=== PATIENT | male | born 1975 | race Caucasian/White ===

== ENCOUNTER 2024-09-03 21:45 | Emergency (ER) | payer OTHER ==
[~2024-09-03] VITALS: Ht 177.8 cm; Wt 80.9 kg
[2024-09-03 22:43] LABS: BASO % 0.3 % (0.0-1.0); EOS # 0.1 10^3/uL (0.0-0.5); EOS % 1.2 % (0.0-3.0); HEMOGLOBIN 10.3 g/dl (13.5-17.5); LYMPH # 0.8 10^3/uL (1.5-5.0); LYMPH % 11.7 % (24.0-44.0); MEAN CORPUSCULAR HEMOGLOBIN 32.9 pg (27.0-33.0); MEAN CORPUSCULAR HGB CONC 35.5 g/dl (32.0-36.5); MEAN CORPUSCULAR VOLUME 92.7 fl (80.0-96.0); MONO # 0.5 10^3/uL (0.0-0.8); MONO % 7.3 % (2.0-8.0); NEUTROPHILS # 5.2 10^3/uL (1.5-8.5); NEUTROPHILS % 79.3 % (36.0-66.0); PLATELET COUNT, AUTOMATED 187 10^3/uL (150-450); RED BLOOD COUNT 3.13 10^6/uL (4.30-6.10); WHITE BLOOD COUNT 6.6 10^3/uL (4.0-10.0)
[2024-09-03 23:05] LABS: LIPASE 84 U/L (12-53)
[2024-09-03 23:07] LABS: ALBUMIN 2.9 G/DL (3.2-5.2); ALKALINE PHOSPHATASE 121 U/L (40-129); ALT/SGPT 51 U/L (7.0-40); AST/SGOT 84 U/L (<34); BILIRUBIN,DIRECT 4.2 MG/DL (<0.4); BILIRUBIN,TOTAL 8.9 MG/DL (0.3-1.2); BLOOD UREA NITROGEN 12 MG/DL (9-23); CALCIUM LEVEL 8.8 MG/DL (8.5-10.1); CARBON DIOXIDE LEVEL 25 MMOL/L (20-31); CHLORIDE LEVEL 96 MMOL/L (98-107); CREATININE FOR GFR 0.83 MG/DL (0.70-1.30); GLOMERULAR FILTRATION RATE > 60.0 (>60); GLUCOSE, FASTING 114 MG/DL (60-100); POTASSIUM SERUM 4.8 MMOL/L (3.5-5.1); SODIUM LEVEL 128 MMOL/L (136-145); TOTAL PROTEIN 6.9 G/DL (5.7-8.2)
[2024-09-04] MEDS: NS (Normal Saline) 0.9% 1,000 ML IV ONE (00:55)
[2024-09-04] MEDS: METOCLOPRAMIDE INJ 10MG/2ML VIAL IV ONE (01:56)
[2024-09-04 02:22] LABS: INR 1.96; PARTIAL THROMBOPLASTIN TIME 37.6 SECONDS (24.8-34.2); PROTHROMBIN TIME 22.4 SECONDS (12.5-14.5)
[2024-09-04] MEDS: MAALOX 30 ML SUSP *UDC PO ONE (02:54)
[2024-09-04] MEDS: PROMETHAZINE 25MG/ML 1ML VIAL IV ONE (02:55)
[2024-09-04] MEDS ORDERED: PROM25TA12 PO (05:35)
[2024-09-04 05:51] VITALS: BP 105/59; TEMP 98.1; O2SAT 100
== END 2024-09-04 05:55 | disposition home or self-care (01) ==
LOC: M ED 21:45
DX: R11.10 Vomiting, unspecified (principal); R16.0 Hepatomegaly, not elsewhere classified; K76.0 Fatty (change of) liver, not elsewhere classified; I10 Essential (primary) hypertension; K21.9 Gastro-esophageal reflux disease without esophagitis; K74.60 Unspecified cirrhosis of liver; Z98.84 Bariatric surgery status; Z90.49 Acquired absence of other specified parts of digestive tract
CPT/HCPCS: 76705; 80048; 80076; 82140; 83690; 85025; 85610; 85730; 93005; 96361; 96374; 96375; 99285; J2550; J2765